=== PATIENT | male | born 1960 ===

== ENCOUNTER 2021-11-14 09:57 | Outpatient (CLI) | payer OTHER | END 2021-11-14 10:06 | disposition home or self-care (01) | LOC: RAD 09:57 | PROVIDERS: ATTEND Physical Medicine & Rehabilitation | DX: M25.572 Pain in left ankle and joints of left foot (principal); M79.672 Pain in left foot ==

== ENCOUNTER → 2021-12-12 | Outpatient (CLI) | payer OTHER | END | disposition home or self-care (01) | LOC: SONOGRAMA 08:25 | PROVIDERS: ATTEND Internal Medicine Gastroenterology | DX: R16.0 Hepatomegaly, not elsewhere classified (principal) ==

== ENCOUNTER 2022-09-25 15:14 | Outpatient (CLI) | payer OTHER | END 2022-09-25 15:21 | disposition home or self-care (01) | LOC: RAD 15:14 | PROVIDERS: ATTEND Emergency Medicine | DX: M54.16 Radiculopathy, lumbar region (principal) ==

== ENCOUNTER 2022-11-20 15:30 | Outpatient (CLI) | payer OTHER | END 2022-11-20 15:37 | disposition home or self-care (01) | LOC: RAD 15:30 | PROVIDERS: ATTEND Emergency Medicine | DX: M17.12 Unilateral primary osteoarthritis, left knee (principal) ==

== ENCOUNTER 2022-12-22 14:59 | Outpatient (CLI) | payer OTHER | END 2022-12-22 15:16 | disposition home or self-care (01) | LOC: RAD 14:59 | PROVIDERS: ATTEND Podiatrist Foot Surgery | DX: M77.41 Metatarsalgia, right foot (principal); M77.42 Metatarsalgia, left foot ==

== ENCOUNTER → 2023-06-29 | Outpatient (CLI) | payer OTHER | END | disposition home or self-care (01) | LOC: RAD 13:10 | PROVIDERS: ATTEND Podiatrist Foot Surgery | DX: Q66.89 Other specified congenital deformities of feet (principal); M77.50 Other enthesopathy of unspecified foot and ankle ==